=== PATIENT | male | born 2000 | race Two or more races ===

== ENCOUNTER 2025-01-12 18:35 | Inpatient (IN) | payer OTHER ==
[~2025-01-12] VITALS: Ht 185.4 cm; Wt 83.9 kg
--- NOTE | 2025-01-12 18:44 | NUR ---
SE RECIBE PTE ALERTA Y ORIENTADO X3 JUNTO A MADRE. LA MISMA REFIERE QUE PTE TAYLOR TENIDO VARIOS EPISODIOS DE VOMITO Y DIARREA DESDE LAS 5PM. SE MIDE SV YY SE UBICA
[2025-01-12] MEDS ORDERED: FAMOtidine 10 MG/ML (4ML VIAL) IV ONE (19:15)
[2025-01-12] MEDS ORDERED: MORPHINE SULFATE 4 MG/ML CARTRIDGE IV ONE (19:15)
[2025-01-12] MEDS ORDERED: 0.9 % SODIUM CHLORIDE 1,000 ML IV ONE (19:15)
[2025-01-12] MEDS ORDERED: ONDANSETRON HCL 2 MG/ML VIAL IV ONE (19:15)
--- NOTE | 2025-01-12 20:06 | NUR ---
SE EDUCA ACERCA DE TX ORDENADO Y REFIERE ENTENDER, SE CANALIZA Y COLECTAN MUESTRAS DE LABORATORIO MEDIANTE MEDIDAS ASEPTICAS. SE ADMINSITRAN MEDICAMENTOS [place] ORDEN MEDICA . SE ADAM ENVASE DE UA.
[2025-01-12] MEDS ORDERED: ONDANSETRON HCL 2 MG/ML VIAL ONE (20:11)
[2025-01-12] MEDS ORDERED: FAMOTIDINE/PF 20 MG/2 ML VIAL ONE (20:11)
[2025-01-12 20:14] LABS: BASO % 0.2 % (0.1-1.2); EOS # 0.00 (0.04-0.54); EOS % 0.0 % (0.7-7.0); LYMPH # 0.75 (1.18-3.74); LYMPH % 5.6 % (19.3-53.1); MEAN PLATELET VOLUME 9.60 fl (9.4-12.4); MONO # 1.02 (0.24-0.82); MONO % 7.7 % (4.7-12.5); NEUT # 11.50 (1.56-6.13); NEUT % 86.3 % (34.0-71.1); RED CELL DISTRIBUTION WIDTH 13.3 % (11.6-14.4)
[2025-01-12 20:30] LABS: INR 1.02
[2025-01-12 20:36] LABS: ALT/SGPT 31.0 U/L (12-78); AST/SGOT 15.0 U/L (15-37); BILIRUBIN TOTAL 0.72 mg/dL (0.3-1.2); BUN CREA RATIO 11.0 (7.0-25.0); CREATININE SERUM 0.84 mg/dL (0.70-1.30); GFR 114.26; GLOBULINA 3.5 G/DL (2.4-3.5); GLUCOSE FASTING 104.0 mg/dL (65-100); OSMOLALITY SERUM 282.0 MOSM/KG (275-295)
[2025-01-12] MEDS ORDERED: PIPERACILLIN/TAZOBACTAM SODIUM 3.375 GM VIAL IV ONE (23:33)
[2025-01-12 23:59] LABS: URINE APPEARANCE Clear; URINE BILIRRUBIN Negative (NEGATIVE); URINE BLOOD Negative; URINE COLOR Yellow; URINE GLUCOSE Negative (NEGATIVE); URINE KETONE Trace (NEGATIVE); URINE LEUKOCYTE Negative; URINE NITRATE Negative; URINE PROTEIN Negative (NEGATIVE); URINE UROBILINOGEN 0.2 E.U./dl
[2025-01-13] MEDS ORDERED: PIPERACILLIN/TAZOBACTAM SODIUM 3.375 GM VIAL IV SCH
--- NOTE | 2025-01-13 | NUR ---
SE ADMINSTRA MEDICAMENTO [place] ORDEN MEDICA Y BAJO MEDIDAS ASEPTICAS.
[2025-01-13 00:02] LABS: URINE BACTERIA 10.7 uL (0.0-1933); URINE RBC 4.6 uL (0.0-20.8); URINE WBC 2.9 uL (0.0-23.2)
[2025-01-13 00:05] LABS: URINE CAST 0.29 uL (0.0-1.40); URINE EPITHELIAL CELLS 1.3 uL (0.0-38.8)
[2025-01-13] MEDS ORDERED: PIPERACILLIN/TAZOBACTAM SODIUM 3.375 GM VIAL IV ONE ×2 (05:44→12:11)
[2025-01-13] MEDS ORDERED: 0.9 % SODIUM CHLORIDE 1,000 ML IV SCH (08:30)
[2025-01-13] MEDS ORDERED: ACETAMINOPHEN 500 MG GEL..CAP PO PRN (08:45)
[2025-01-13] MEDS ORDERED: ENOXAPARIN SODIUM 30 MG/0.3 ML SYRINGE SUBCUTANEO SCH (09:00)
[2025-01-13] MEDS ORDERED: PANTOPRAZOLE SODIUM 40 MG/VIAL VIAL IV PUSH SCH (09:00)
[2025-01-13] MEDS ORDERED: BUPIVACAINE HCL/MPF 0.5% 30ML VIAL ONE (13:30)
[2025-01-13] MEDS ORDERED: LIDOCAINE HCL 1%/EPINEPHRINE 20ML VIAL IJ ONE (13:31)
[2025-01-13] MEDS ORDERED: SUGAMMADEX SODIUM 200 MG/2 ML VIAL IV ONE (16:38)
[2025-01-14 03:24] VITALS: BP 99/60; O2SAT 98
[2025-01-14 09:57] LABS: BASO % 0.2 % (0.1-1.2); EOS # 0.06 (0.04-0.54); EOS % 0.7 % (0.7-7.0); LYMPH # 2.37 (1.18-3.74); LYMPH % 27.0 % (19.3-53.1); MEAN PLATELET VOLUME 10.00 fl (9.4-12.4); MONO # 0.77 (0.24-0.82); MONO % 8.8 % (4.7-12.5); NEUT # 5.52 (1.56-6.13); NEUT % 63.0 % (34.0-71.1); RED CELL DISTRIBUTION WIDTH 13.7 % (11.6-14.4)
[2025-01-14 10:18] VITALS: BP 96/54; O2SAT 98
[2025-01-14 11:02] LABS: ALT/SGPT 20.0 U/L (12-78); AST/SGOT 12.0 U/L (15-37); BILIRUBIN TOTAL 1.63 mg/dL (0.3-1.2); BUN CREA RATIO 11.0 (7.0-25.0); CREATININE SERUM 0.8 mg/dL (0.70-1.30); GFR 120.88; GLOBULINA 3.1 G/DL (2.4-3.5); GLUCOSE FASTING 65.0 mg/dL (65-100); OSMOLALITY SERUM 282.0 MOSM/KG (275-295)
[2025-01-14 17:19] VITALS: BP 104/65; O2SAT 99
[2025-01-15 03:02] VITALS: BP 95/58; O2SAT 98
[2025-01-15 08:36] VITALS: BP 97/62; O2SAT 96
[2025-01-15 10:15] LABS: BASO % 0.4 % (0.1-1.2); EOS # 0.08 (0.04-0.54); EOS % 1.6 % (0.7-7.0); LYMPH # 1.41 (1.18-3.74); LYMPH % 27.9 % (19.3-53.1); MEAN PLATELET VOLUME 9.30 fl (9.4-12.4); MONO # 0.42 (0.24-0.82); MONO % 8.3 % (4.7-12.5); NEUT # 3.12 (1.56-6.13); NEUT % 61.8 % (34.0-71.1); RED CELL DISTRIBUTION WIDTH 13.4 % (11.6-14.4)
== END 2025-01-15 18:19 | disposition home or self-care (01) | DRG 399 ==
LOC: ER 18:35 → SEC-K 01-13 08:31 → MEDJ 01-13 19:19
PROVIDERS: General Practice; Specialist; ADMIT Internal Medicine; ATTEND Internal Medicine
PROC: 0DTJ4ZZ Resection of Appendix, Percutaneous Endoscopic Approach (ICD-10-PCS; principal; 2025-01-13 13:30)
DX: K35.890 Other acute appendicitis without perforation or gangrene (principal)